=== PATIENT | female | born 1960 | race Caucasian/White ===

== ENCOUNTER 2017-01-04 12:38 | Observation (INO) ==
[2017-01-04] MEDS ORDERED: Aspirin 81 MG TAB.CHEW PO ONE (13:01)
[2017-01-04 13:15] LABS: Basophils # 0.1 K/mcL (0.0-0.2); Basophils % 1.3 %; Eosinophils # 0.2 K/mcL (0.0-0.6); Eosinophils % 3.1 %; Hematocrit 42.9 % (35.3-44.9); Hemoglobin 14.7 g/dL (11.5-15.4); Immature Granulocytes % 0.4 % (0-4); Lymphocytes # 1.7 K/mcL (0.6-4.6); Mean Corpuscular HGB Conc 34.3 g/dL (31.6-35.5); Mean Corpuscular Hemoglobin 30.6 pg (28.0-33.3); Mean Corpuscular Volume 89.2 fL (83.0-100.0); Mean Platelet Volume 9.2 fL (9.4-12.4); Monocytes # 0.4 K/mcL (0.0-1.3); Neutrophils # 3.1 K/mcL (1.6-8.9); Platelet Count 134 K/mcL (140-400); Red Blood Count 4.81 M/mcL (3.82-4.97); Red Cell Distribution Width 12.4 % (11.5-14.5); Segmented Neutrophils % 56.2 %
[2017-01-04] MEDS ORDERED: Nitroglycerin 0.4 MG TAB.SUBL SL ONE (13:16)
--- NOTE | 2017-01-04 13:16 | Emergency Department Note ---
Disposition Clinical Impression: Chest pain Qualifiers: Chest pain type: unspecified Qualified Code(s): R07.9 - Chest pain, unspecified Disposition: Admitted As Inpatient Condition: Good Time of Disposition: 15:28 Chest Pain HPI - General Chief Complaint: ED Chest Pain Stated Complaint: CP Time Seen by Provider: 01/04/17 12:47 Source: patient Mode of arrival: ambulatory Limitations: physical limitation Vital Signs Reviewed: Yes Nursing Notes Reviewed: Yes - History of Present Illness HPI Narrative: 56-year-old female presents complaining of tingling and numbness in her left upper extremity radiating into her chest history of hypertension hyperlipidemia no history of CAD previously insulin controlled diabetic, states that the pain is 6 out of 10 aching in her chest, states it is associated with some diaphoresis. Patient denies weakness in her face slurred speech or any other focal neurologic deficits besides her left upper extremity seizure. Patient denies history of DVT or PE, just some cramping in her right calf, but is not taking estrogens, no recent car plane travel. Pt complaint: chest pain Time: 14:50 Duration: intermittent Onset: during rest Pain Location: right chest Severity: moderate Severity scale (1-10): 8 Quality: aching - Related Data Home Medications Medication Instructions Recorded Confirmed Multivitamin [Multivitamins] 1 tab PO DAILY 10/17/14 01/04/17 Sennosides [Natural Vegetable 8.6 mg PO BID PRN 10/17/14 01/04/17 Laxative] Trazodone HCl [TraZODone] 100 mg PO HS 10/17/14 01/04/17 Garlic [Daily Garlic Once-A-Day] 400 mg PO DAILY 01/28/16 01/04/17 Ascorbic Acid [Vitamin C] 500 mg PO DAILY 04/14/16 01/04/17 Aspirin [Lo-Dose Aspirin EC] 81 mg PO DAILY 04/14/16 01/04/17 Lactobacillus Acidophilus 1 cap PO DAILY 04/14/16 01/04/17 [Acidophilus] Atenolol [Tenormin] 50 mg PO BID 07/27/16 01/04/17 Calcium Carbonate/Vitamin D3 1 tab PO BID 07/27/16 01/04/17 [Oyster Shell Calcium-Vit D Tab] Dextran 70/Hypromellose 1 drop OP QID 07/27/16 01/04/17 [Artificial Tears] Fenofibrate [Tricor] 54 mg PO DAILY 07/27/16 01/04/17 Ipratropium [place] 2 spray NS DAILY 07/27/16 01/04/17 Cholecalciferol (D-3) [Vitamin D] 5,000 unit PO DAILY 08/02/16 01/04/17 Lactulose [Enulose] 10 gm PO DAILY 08/02/16 01/04/17 Zinc Acetate [Galzin] 50 mg PO DAILY 08/02/16 01/04/17 cloNIDine HCl [CloNIDine HCl] 0.1 mg PO DAILY 08/02/16 01/04/17 Albuterol Sulfate [Albuterol 2 puff IH Q6HR PRN 11/02/16 01/04/17 Inhaler] Lidocaine Patch [Lidoderm 5% patch] 1 patch TP DAILY PRN 11/02/16 01/04/17 Levothyroxine Sodium [Levoxyl] 100 mcg PO DAILY 01/04/17 01/04/17 Previous Rx's Medication Instructions Recorded Zolpidem Tartrate [Ambien Cr] 12.5 mg PO DAILY PRN #30 tab.mphase 12/12/14 Diazepam [Valium] 10 mg PO BID PRN #60 tablet 01/09/15 Cetirizine HCl [Zyrtec] 10 mg PO DAILY #30 tablet 12/17/15 Esomeprazole Magnesium [Nexium] 40 mg PO DAILY #30 capsule. 09/01/16 Allergies Allergy/AdvReac Type Severity Reaction Status Date / Time niacin AdvReac UNKNOWN Verified 01/04/17 12:54 Penicillins AdvReac UNKNOWN Verified 01/04/17 12:54 Adrian AdvReac Rash Verified 01/04/17 12:54 Sulfa (Sulfonamide AdvReac UNKNOWN Verified 01/04/17 12:54 Antibiotics) All systems ED: reviewed and negative except as stated. Review of Systems: As Per HPI Constitutional: Denies: fever, chills Eyes: Denies: eye pain ENT ED: Denies: ear pain Cardiovascular: Reports: as per HPI, chest pain Respiratory: Denies: cough Gastrointestinal: Denies: abdominal pain, nausea Genitourinary: Denies: urgency Musculoskeletal: Denies: back pain Integumentary: Denies: rash Chest Pain PMH - Past Medical History Medical history: Reports: arthritis, COPD, GERD, hepatitis, hypertension Surgical history: Reports: other Psychiatric history: Reports: anxiety, bipolar SHAFTING CLEANER history: Reports: no SHAFTING CLEANER history - Social History Smoking Status: Never smoker Alcohol use: Reports: none, occasionally Drug use: Reports: none, marijuana Physical Exam Constitutional: NAD pt appears anxious and shaky somewhat diaphoretic, vital signs reviewed and wnl Eyes: PERRLA, sclera anicteric ENT & Mouth: MMM Neck: normal inspection, neck is supple Resp: CTA bilaterally, no resp distress CV: RRR, no m/g/r GI: normal inspection, soft, no guarding or rigidity Neuro: A&O3, strength intact bilateral upper and lower extremities, subjective sensation of paresthesia to left arm Skin: on limited exam, skin intact with no rashes or lesions - General Limitations: physical limitation General appearance: alert, in no apparent distress Course Course Narrative: 56-year-old female with left upper surgery sensory deficits as well as an onset chest pain, suspect likely cardiac, CBC BMP troponin nitroglycerin added patient given aspirin by for chest pain workup. HEART Score of 4 - Reevaluation(s) Reevaluation #1: Risk factors with chest pain, plan is for admission the hospitalist, who that additional CTA given the neurologic numbness although she is no other focal neurologic deficits. Unsure what is causing her symptoms she was in the high anxiety component likely to her symptoms. Admitted due to chest pain, resolved with nitroglycerin concern for angina versus unstable angina Plan is for her ED admission excepted by Dr. Spear Time: 15:29 Vital Signs Temperature 97.6 F 01/04/17 12:55 Pulse Rate 66 01/04/17 12:55 Respiratory Rate 22 01/04/17 12:55 Blood Pressure 179/99 01/04/17 12:55 O2 Sat by Pulse Oximetry 100 01/04/17 12:55 Temperature 97.6 F 01/04/17 12:55 Pulse Rate 50 01/04/17 14:08 Respiratory Rate 23 01/04/17 14:08 Blood Pressure 156/87 01/04/17 14:08 O2 Sat by Pulse Oximetry 97 01/04/17 14:08 Oxygen Delivery Oxygen Delivery Room Air Chest Pain - Differential Diagnosis Likely: unstable angina pectoris, atypical chest pain, chest pain - Medical Records Medical records reviewed: Yes I reviewed the patient's medical records. - Lab Data Lab results reviewed: Yes I reviewed the patient's lab results. Result diagrams: 01/04/17 13:06 01/04/17 13:06 Lab Results 01/04/17 01/04/17 01/04/17 Range/Units 13:06 13:06 13:06 WBC 5.4 (4.3-11.1) K/mcL RBC 4.81 (3.82-4.97) M/mcL Hgb 14.7 D (11.5-15.4) g/dL Hct 42.9 (35.3-44.9) % MCV 89.2 (83.0-100.0) fL MCH 30.6 (28.0-33.3) pg MCHC 34.3 (31.6-35.5) g/dL RDW 12.4 (11.5-14.5) % Plt Count 134 L (140-400) K/mcL MPV 9.2 L (9.4-12.4) fL Immature Gran % 0.4 (0-4) % Seg Neutrophils % 56.2 % Lymphocytes % 32.0 % Monocytes % 7.0 % Eosinophils % 3.1 % Basophils % 1.3 % Neutrophils # 3.1 (1.6-8.9) K/mcL Lymphocytes # 1.7 (0.6-4.6) K/mcL Monocytes # 0.4 (0.0-1.3) K/mcL Eosinophils # 0.2 (0.0-0.6) K/mcL Basophils # 0.1 (0.0-0.2) K/mcL Sodium 139 (136-145) mEq/L Potassium 4.4 (3.5-4.5) mEq/L Chloride 103 (98-109) mEq/L Carbon Dioxide 26 (19-29) mEq/L BUN 15 (7-20) mg/dL Creatinine 0.84 (0.57-1.11) mg/dL Est GFR ( Amer) > 60 (> 60) Est GFR (Non-Af Amer) > 60 (> 60) BUN/Creatinine Ratio 18 (6-26) Glucose 136 H (70-99) mg/dL Calculated Osmolality 291 (280-300) Calcium 9.9 (8.6-10.8) mg/dL Troponin I 0.00 (0-0.03) ng/mL - Radiology Data Radiology results reviewed: Yes I reviewed the patient's radiology results. Chest X-Ray 01/04/17 13:01 IMPRESSION: Cardiomegaly, slightly decreased since previous exam. D/ / Makenna Vasquez MD / Makenna Vasquez MD Interpreting Provider: Makenna Vasquez MD Chest CTA 01/04/17 13:54 IMPRESSION: No evidence of pulmonary embolism or acute pulmonary abnormality. D/ / Daniele Juarez MD / Daniele Juarez MD Interpreting Provider: Daniele Juarez MD - EKG Data EKG attestation: Yes I reviewed and interpreted this EKG. EKG shows normal: sinus rhythm (63 bpm AR 126 QRS 96 QTc [address] segment elevations or depressions flattened T-wave in lead 3) Rate: normal Rhythm: NSR Interpretation: no acute changes - Core Measures AMI Core Measures Followed: Yes Heart Score - Score History: Moderately Suspicious EKG: Normal Age: 45-65 Risk Factors: Equal/Greater than 3 risk factor or history of atherosclerotic disease Troponin: Less than normal limit HEART Score Total: 4 Attestation Statement - Attestation Attestation: I examined this patient and my medical decision-making was reviewed with the Resident Physician. I agree with the documented findings, disposition and treatment plan as described except to the extent set forth below. Patient to the ED complaining of left arm pain. She states that the numbness in her arm for several days. Today she got sharp stabbing pain from her wrist. States it radiated to her shoulder blade and then into her chest. Denies cough or fever. She is not short of breath. She did have an esophagectomy with thyroidectomy in 2014. On examination she has severe pain with any palpation of the arm. She has a good pulse. The hands pink and warm. Tenderness over the scapula as well. There is no rash overlying these areas. Her lungs are clear. Plan. Her cardiac workup is unremarkable. Imaging of the chest is unremarkable as well. Patient is admitted for further cardiac workup.
[2017-01-04 13:28] LABS: BUN/Creatinine Ratio 18 (6-26); Blood Urea Nitrogen 15 mg/dL (7-20); Calcium 9.9 mg/dL (8.6-10.8); Carbon Dioxide 26 mEq/L (19-29); Chloride 103 mEq/L (98-109); Glucose 136 mg/dL (70-99); Osmolality,Calculated 291 (280-300); Potassium 4.4 mEq/L (3.5-4.5); Sodium 139 mEq/L (136-145); eGFR For African Americans > 60 (> 60); eGFR For Non-African Americans > 60 (> 60)
[2017-01-04] MEDS ORDERED: *HR* HYDROcodone/Acet 5/325 mg TABLET PO PRN (15:33)
[2017-01-04] MEDS ORDERED: *HR* Morphine 2 MG/ML SYRINGE IVP PRN (15:33)
[2017-01-04] MEDS ORDERED: Ondansetron 4 MG/2 ML VIAL IVP PRN (15:33)
[2017-01-04] MEDS ORDERED: Acetaminophen 325 MG TABLET PO PRN (15:33)
[2017-01-04] MEDS ORDERED: Naloxone 0.4 MG/ML INJ IVP PRN (15:33)
[2017-01-04] MEDS ORDERED: MOM Conc 10 ML UD.LIQ PO PRN (15:33)
[2017-01-04] MEDS ORDERED: *HR* Promethazine 25 MG/ML VIAL IVP PRN (15:33)
[2017-01-04] MEDS ORDERED: diazePAM 10 MG TABLET PO ONE (15:34)
[2017-01-04] MEDS ORDERED: Sennosides 8.6 MG TABLET PO PRN (15:36)
--- NOTE | 2017-01-04 17:27 | Internal Med History&Physical ---
Date of Encounter: 01/04/17 Time of Encounter: 17:17 Assessment and Plan (1) Left-sided weakness Current visit: Yes Status: Acute Will place the pt into Tele for observation Pt is a poor hisotrian, she was not giving proper history.. however upon examination noticed Left UE / LE weakness will cont Neuro checks Q4hr Not a candidate for tPA due to prolonged duration of symptoms Will get a stat CT of Head Cont ASA Check FLP in AM Cont Tricor for now Will get brain MRI of Carotid Doppler in AM will get 2 D Echo in AM (2) Chest pain Current visit: Yes Status: Acute Will place pt on bus driver/monitor check serial troponin so far negative troponin EKG reviewed - NSR, with VR - 63, No ST, T changes Cont on ASA, Nitro PRN and Morphine IV PRN for pain Will check FLP in AM Her CP seems to be atypical no further work up needed at this point will get 2 D Echo in AM Cont BB Atenolol Qualifiers: Chest pain type: unspecified Qualified Code(s): R07.9 - Chest pain, unspecified (3) HTN (hypertension) Current visit: Yes Status: Acute Resumed home meds Qualifiers: Qualified Code(s): I10 - Essential (primary) hypertension (4) COPD (chronic obstructive pulmonary disease) Current visit: Yes Status: Chronic stable not in exacerbation resumed home regimen Qualifiers: Qualified Code(s): J44.9 - Chronic obstructive pulmonary disease, unspecified (5) Esophageal adenocarcinoma Current visit: Yes Status: Chronic f/u with Heme Onc as an out pt recent EGD biopsy results - showed no malignancy (6) Malignant neoplasm of unspecified site of right female breast Current visit: Yes Status: Chronic Qualifiers: Qualified Code(s): C50.911 - Malignant neoplasm of unspecified site of right female breast (7) Anxiety Current visit: No Status: Acute resumed home meds Valium Internal Medicine - H&P: HPI Chief complaint: Left arm/ leg weakness.. Left arm pain Admitted From: Emergency Dept Plans for Post Hospital Care: Home History of present illness: Ms. Gonzalez is a 56 year old female esophageal adenocarcinoma status post neoadjuvant chemoradiation and esophagectomy with radiotherapy completed 2013, Rt breast cancer s/p mastectomy chemotherapy / radiation therapy 20 yrs ago, Cervical cancer, COPD not on home O2 dependent, former smoker, quit in 2014 and anxiety pt presented to ER today c/o pain and weakness in Left arm started a week ago, the pain is radiating to her shoulder and left chest wall region from last 2 days. She also had weakness in left arm, unable to hold anything with that hand. She denied any weakness anywhere else, however when I started examining her, noticed weakness in left leg. Then pt stated m " Oh, I have weakness in left leg too since this morning ". She also c/o headache, no visual changes. She denied any previous h/o [place]/ CAD, cardiac work up. She denied any current GI / symptoms. She does look slightly anxious. 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 She also had EGD done on 12/16/16 biopsy did not show any malignancy. Past Med Surg Social Fam HX - Past Medical History Medical history: arthritis, cancer, COPD, GERD, hepatitis, hypertension Psychiatric history: anxiety, bipolar, PTSD - Past Surgical History Surgical History: breast surgery, KOKO/BSO, thyroidectomy - Social History Smoking Status: Former smoker Smokeless Tobacco Status: No Alcohol use: occasionally Drug use: marijuana - Family History Father Hx Family Cardiac Disorders: Yes Hx Family Cancer: Yes (non hodgkins) Internal Medicine - H&P: Meds Multivitamin [Multivitamins] 1 tab PO DAILY 10/17/14 [History] Sennosides [Natural Vegetable Laxative] 8.6 mg PO BID PRN 10/17/14 [History] Trazodone HCl [TraZODone] 100 mg PO HS 10/17/14 [History] Zolpidem Tartrate [Ambien Cr] 12.5 mg PO DAILY PRN #30 tab.mphase 12/12/14 [Rx] Diazepam [Valium] 10 mg PO BID PRN #60 tablet 01/09/15 [Rx] Cetirizine HCl [Zyrtec] 10 mg PO DAILY #30 tablet 12/17/15 [Rx] Garlic [Daily Garlic Once-A-Day] 400 mg PO DAILY 01/28/16 [History] Ascorbic Acid [Vitamin C] 500 mg PO DAILY 04/14/16 [History] Aspirin [Lo-Dose Aspirin EC] 81 mg PO DAILY 04/14/16 [History] Lactobacillus Acidophilus [Acidophilus] 1 cap PO DAILY 04/14/16 [History] Atenolol [Tenormin] 50 mg PO BID 07/27/16 [History] Calcium Carbonate/Vitamin D3 [Oyster Shell Calcium-Vit D Tab] 1 tab PO BID 07/27 [History] Dextran 70/Hypromellose [Artificial Tears] 1 drop OP QID 07/27/16 [History] Fenofibrate [Tricor] 54 mg PO DAILY 07/27/16 [History] Ipratropium [place] 2 spray NS DAILY 07/27/16 [History] Cholecalciferol (D-3) [Vitamin D] 5,000 unit PO DAILY 08/02/16 [History] Lactulose [Enulose] 10 gm PO DAILY 08/02/16 [History] Zinc Acetate [Galzin] 50 mg PO DAILY 08/02/16 [History] cloNIDine HCl [CloNIDine HCl] 0.1 mg PO DAILY 08/02/16 [History] Esomeprazole Magnesium [Nexium] 40 mg PO DAILY #30 capsule. 09/01/16 [Rx] Albuterol Sulfate [Albuterol Inhaler] 2 puff IH Q6HR PRN 11/02/16 [History] Lidocaine Patch [Lidoderm 5% patch] 1 patch TP DAILY PRN 11/02/16 [History] Levothyroxine Sodium [Levoxyl] 100 mcg PO DAILY 01/04/17 [History] 3 Allergy/AdvReac Type Severity Reaction Status Date / Time niacin AdvReac UNKNOWN Verified 01/04/17 12:54 Penicillins AdvReac UNKNOWN Verified 01/04/17 12:54 Murphy AdvReac Rash Verified 01/04/17 12:54 Sulfa (Sulfonamide AdvReac UNKNOWN Verified 01/04/17 12:54 Antibiotics) All Systems PM: A 10-system review of systems was performed and is negative for pertinent findings except as documented above in the HPI. Review of systems: All the systems are reviewed everything is benign except the systems and symptoms I mentioned in the history of present illness - Constitutional Vitals: Temp Pulse Resp BP Pulse Ox 98.1 F 58 16 147/79 97 01/04/17 16:18 01/04/17 16:18 01/04/17 16:18 01/04/17 16:18 01/04/17 16:18 General appearance: Present: A&O X 3, no acute distress (little anxious), answers questions appropriately - Head Head exam: Present: atraumatic, normal inspection - Neck Neck exam general surgery: Present: supple - Respiratory Respiratory exam: Present: decreased breath sounds, wheezes (mild). Absent: rales, respiratory distress, rhonchi - Cardiovascular Cardiovascular exam: Present: RRR, +S1, +S2. Absent: diastolic murmur, gallop, rubs, systolic murmur - GI/Abdominal GI/Abdominal exam: Present: normal bowel sounds, soft, no peritoneal signs. Absent: distended, tenderness - Extremities Exam Extremities exam: Absent: calf tenderness, pedal edema, tenderness - Neurological Exam Neurological exam: Present: alert, motor sensory deficit (Left Upper and lower extremeity weakness, more significant on LUE), oriented X3. Absent: strengths equal and symetr throughout, pronater drift, facial droop, speech deficit - Psychiatric Psychiatric exam: Present: anxious - Skin Skin exam: Present: dry Internal Med - H&P Results - Labs CBC & Chem 7: 01/04/17 13:06 01/04/17 13:06
--- NOTE | 2017-01-04 17:27 | Electrocardiograph Report ---
[facility] Test Date: 2017-01-04 Pat Name: Valentine Gonzalez Department: [id number] Room: 3B37 Gender: F [employer]: : 1960 Requested By: Haseeb Lou Order Number: [id number] Reading MD: Trell Novak DO Measurements Intervals [place] Rate: 63 P: 17 SC: 126 QRS: 74 QRSD: 96 T: 21 QT: 429 QTc: 436 Interpretive Statements SINUS RHYTHM POSSIBLE LEFT ATRIAL ENLARGEMENT [-0.1mV P WAVE IN V1/V2] INTERPRETATION BASED ON A DEFAULT AGE OF 40 YEARS Electronically Signed On 01-04-2017 17:25:58 EDT by Trell Novak DO
[2017-01-04] MEDS: Artificial Tears SOLN 15 ML BOTTLE OP SCH ×2 (19:43→21:40)
[2017-01-04] MEDS: traZODone 50 MG TABLET PO SCH (21:39)
[2017-01-04] MEDS: diazePAM 10 MG TABLET PO PRN (21:39)
[2017-01-04] MEDS: Famotidine 20 MG TABLET PO SCH (21:40)
[2017-01-04] MEDS: Fenofibrate 54 MG TABLET PO SCH (21:40)
[2017-01-05 04:17] LABS: Chol/HDL Ratio 3.9 (0-4.9)
[2017-01-05] MEDS ORDERED: Regadenoson 0.4 MG/5 ML SYRINGE IVP ONE (08:29)
[2017-01-05] MEDS: diazePAM 10 MG TABLET PO PRN ×2 (08:41→21:28)
[2017-01-05] MEDS: Cholecalciferol (D-3) 1,000 UNIT TABLET PO SCH (08:41)
[2017-01-05] MEDS: Aspirin Enteric Coated 81 MG Tablet PO SCH (08:41)
[2017-01-05] MEDS: Multivit/Ca/Min/Fe/FA 1 TAB TABLET PO SCH (08:41)
[2017-01-05] MEDS: Famotidine 20 MG TABLET PO SCH ×3 (08:42→21:29)
[2017-01-05] MEDS: Loratadine 10 MG TABLET PO SCH (08:42)
[2017-01-05] MEDS: Ascorbic Acid 500 MG TABLET PO SCH (08:42)
[2017-01-05] MEDS: Fenofibrate 54 MG TABLET PO SCH (08:42)
[2017-01-05] MEDS: cloNIDine HCl 0.1 MG TABLET PO SCH (08:42)
[2017-01-05] MEDS: Artificial Tears SOLN 15 ML BOTTLE OP SCH ×4 (08:46→21:23)
[2017-01-05] MEDS ORDERED: Fenofibrate 54 MG TABLET PO SCH (09:00)
[2017-01-05] MEDS: Zinc Acetate [Galzin] 50 MG PO SCH (12:19)
[2017-01-05] MEDS ORDERED: *HR* LORazepam 1 MG TABLET PO ONE (13:21)
--- NOTE | 2017-01-05 13:55 | Neurology - Consult Note ---
<Torito Dunham - Last Filed: 01/05/17 15:19> Date of Encounter: 01/05/17 Time of Encounter: 13:15 Assessment and Plan (1) Left-sided weakness Current Visit: Yes Status: Acute Patient presented to [facility] with concern of left-sided weakness. She also describes having some numbness in her left upper extremity No reports of facial symmetry or dysarthria. Physical exam showed weakness on left side of her body without facial droop, unable/unwilling to perform rapid also a movements are finger-nose left upper extremity, possibly positive Garcia sign when asked left left leg. CT of patient head showed no abnormalities. Preliminary report of carotid Dopplers show nonstenotic plaque bilaterally. Given the patient's history of cancer with radiation, there is some concern for a brachial plexopathy or cervical spinal lesion causing her symptoms Waiting for results of MRI of head and echocardiogram Will obtain MR of cervical spine Consider addition of statin or changing fenofibrate Continue daily aspirin Allow permissive hypertension until results of MRI are seen Recommend PT/OT History of Present Illness Chief complaint: Left arm weakness HPI: Ms. Gonzalez is a 56 year old female with prior medical history of esophageal, breasts, and cervical cancer, COPD, hypertension, fibromyalgia, thyroidectomy for atypical cells who presented to [facility] because of weakness in her left arm. She states she woke with weakness in her left arm yesterday morning. She states that she noticed it when drinking coffee in the morning. She reports having some difficulty holding objects at that time. She states that her left eye has been feeling cold but is not moving leg is supposed, she has to concentrate to make it move as she wants to. During the same time she reports some mild weakness in her left leg. She has not noticed any particular numbness other than her left hand she states is been numb for about a month. She states that following her esophagectomy for esophageal cancer in 2013 she has had off and on numbness of her left hand. She reports that for the last 2 weeks she has had headaches medicine overhead with some associated blurry vision. She denies having been sick recently, denies fever/chills, denies chest pain/shortness of breath, denies nausea/constipation. Past Med Surg Social Fam HX - Past Medical History Medical history: arthritis, cancer, COPD, GERD, hepatitis, hypertension Psychiatric history: anxiety, bipolar, PTSD - Past Surgical History Surgical History: breast surgery, KOKO/BSO, thyroidectomy - Social History Smoking Status: Former smoker Smokeless Tobacco Status: No Alcohol use: occasionally Drug use: marijuana - Family History Father Hx Family Cardiac Disorders: Yes Hx Family Cancer: Yes (non hodgkins) Medications and Allergies Multivitamin [Multivitamins] 1 tab PO DAILY 10/17/14 [History] Sennosides [Natural Vegetable Laxative] 8.6 mg PO BID PRN 10/17/14 [History] Trazodone HCl [TraZODone] 100 mg PO HS 10/17/14 [History] Zolpidem Tartrate [Ambien Cr] 12.5 mg PO DAILY PRN #30 tab.mphase 12/12/14 [Rx] Diazepam [Valium] 10 mg PO BID PRN #60 tablet 01/09/15 [Rx] Cetirizine HCl [Zyrtec] 10 mg PO DAILY #30 tablet 12/17/15 [Rx] Garlic [Daily Garlic Once-A-Day] 400 mg PO DAILY 01/28/16 [History] Ascorbic Acid [Vitamin C] 500 mg PO DAILY 04/14/16 [History] Aspirin [Lo-Dose Aspirin EC] 81 mg PO DAILY 04/14/16 [History] Lactobacillus Acidophilus [Acidophilus] 1 cap PO DAILY 04/14/16 [History] Atenolol [Tenormin] 50 mg PO BID 07/27/16 [History] Calcium Carbonate/Vitamin D3 [Oyster Shell Calcium-Vit D Tab] 1 tab PO BID 07/27 [History] Dextran 70/Hypromellose [Artificial Tears] 1 drop OP QID 07/27/16 [History] Fenofibrate [Tricor] 54 mg PO DAILY 07/27/16 [History] Ipratropium [place] 2 spray NS DAILY 07/27/16 [History] Cholecalciferol (D-3) [Vitamin D] 5,000 unit PO DAILY 08/02/16 [History] Lactulose [Enulose] 10 gm PO DAILY 08/02/16 [History] Zinc Acetate [Galzin] 50 mg PO DAILY 08/02/16 [History] cloNIDine HCl [CloNIDine HCl] 0.1 mg PO DAILY 08/02/16 [History] Esomeprazole Magnesium [Nexium] 40 mg PO DAILY #30 capsule. 09/01/16 [Rx] Albuterol Sulfate [Albuterol Inhaler] 2 puff IH Q6HR PRN 11/02/16 [History] Lidocaine Patch [Lidoderm 5% patch] 1 patch TP DAILY PRN 11/02/16 [History] Levothyroxine Sodium [Levoxyl] 100 mcg PO DAILY 01/04/17 [History] 3 Allergy/AdvReac Type Severity Reaction Status Date / Time niacin AdvReac UNKNOWN Verified 01/04/17 12:54 Penicillins AdvReac UNKNOWN Verified 01/04/17 12:54 [place] AdvReac Rash Verified 01/04/17 12:54 Sulfa (Sulfonamide AdvReac UNKNOWN Verified 01/04/17 12:54 Antibiotics) Review of Systems: Gen: Denies fever, denies chills CV: Denies chest pain, denies palpitations Resp: Denies shortness of breath GI: Denies nausea, denies vomiting, denies abdominal pain Neuro: Reports headache, denies confusion, reports left-sided focal weakness as per history of present illness, reports numbness in left hand, reports tingling in left arm, reports vision changes with headache, denies dysarthria, reports speaking backwards, denies facial asymmetry Physical Examination - Vital Signs Vital Signs: Initial Vital Signs Temp Pulse Resp BP Pulse Ox 97.6 F 66 22 179/99 100 01/04/17 12:55 01/04/17 12:55 01/04/17 12:55 01/04/17 12:55 01/04/17 12:55 - Exam Exam: General: Cooperative, pleasant, no acute distress, alert and oriented 3, answers questions appropriately HEENT: Normocephalic, atraumatic, neck supple, trachea midline, Conjunctiva pink , sclera anicteric, EOMI, PERRL, oral mucosa moist, no orophargeal erythema or exudates Respiratory: No accessory muscle usage, clear to auscultation bilaterally, no wheezes/rhonchi/rales appreciated Cardiovascular: Regular rate and rhythm, S1 and S2 present, no murmurs/rubs/ gallops/clicks appreciated GI/abdominal: Nondistended, nontender, soft, normal bowel sounds, no peritoneal signs Extremities: No calf tenderness, noncyanotic, no pedal edema appreciated, warm, lower extremity pulses palpable and symmetrical Neurological: Alert and oriented 3, no facial droop, cranial nerves II through XII grossly intact bilaterally, rapid alternating movements smooth with good laura and right hand, patient has difficulty with left hand, finger to nose smooth and accurate with right, unable to perform on left, sensation to gross touch intact produced in left upper extremity and lateral aspect of patient calf , complete numbness in left hand, strength 3/5 in left upper and lower extremity , Garcia sign positive, DTRs 2/4 in Achilles, patellar, and biceps, Results - Laboratory Findings CBC and BMP: 01/04/17 13:06 01/04/17 13:06 Abnormal lab findings: Abnormal lab results Plt Count 134 K/mcL (140-400) L 01/04/17 13:06 MPV 9.2 fL (9.4-12.4) L 01/04/17 13:06 Glucose 136 mg/dL (70-99) H 01/04/17 13:06 Triglycerides 158 mg/dL (< 150) H 01/05/17 02:25 VLDL Cholesterol, Calc 32 mg/dL (< 31) H 01/05/17 02:25 HDL Cholesterol 36 mg/dL (40-59) L 01/05/17 02:25 Consult Discharge Plan - Plan Referrals: Mara Lozada, [employer] [Primary Care Provider] - <Anup Max - Last Filed: 01/05/17 16:37> Date of Encounter: 01/05/17 Time of Encounter: 16:33 Assessment and Plan (1) Left-sided weakness Current Visit: Yes Status: Acute Chart was reviewed, case discussed with Dr. Dunham. Pt. still off [facility] for testing. I will examine her tomorrow. History of Present Illness HPI: Chart was reviewed, case was discussed with , however pt. is still off of the floor after 2 attempts to see her. I anticipate seeing her in the am. All Systems: A 10-system review of systems was performed and is negative for pertinent findings except as documented above in the HPI. Physical Examination - Vital Signs Vital Signs: Initial Vital Signs Temp Pulse Resp BP Pulse Ox 97.6 F 66 22 179/99 100 01/04/17 12:55 01/04/17 12:55 01/04/17 12:55 01/04/17 12:55 01/04/17 12:55 Results - Laboratory Findings CBC and BMP: 01/04/17 13:06 01/04/17 13:06 Abnormal lab findings: Abnormal lab results Plt Count 134 K/mcL (140-400) L 01/04/17 13:06 MPV 9.2 fL (9.4-12.4) L 01/04/17 13:06 Glucose 136 mg/dL (70-99) H 01/04/17 13:06 Triglycerides 158 mg/dL (< 150) H 01/05/17 02:25 VLDL Cholesterol, Calc 32 mg/dL (< 31) H 01/05/17 02:25 HDL Cholesterol 36 mg/dL (40-59) L 01/05/17 02:25
--- NOTE | 2017-01-05 18:05 | Internal Med Progress Note ---
Date of Encounter: 01/05/17 Time of Encounter: 18:04 - Assessment and plan (1) Left-sided weakness Current Visit: Yes Status: Acute Assessment and plan: Reviewed her Brain MRI - No acute infractions Her Cervical spine MRI showed severe stenosis at C5-6 which might contributing to her current symptoms Left arm weakness Will consult Spine surgery in AM Cont supportive care for now IV and PO analgesics ASA (2) Chest pain Current Visit: Yes Status: Acute Assessment and plan: Negative troponin so far No acute EKG changes Stress test also came back as negative cont ASA and BB Qualifiers: Chest pain type: unspecified Qualified Code(s): R07.9 - Chest pain, unspecified (3) HTN (hypertension) Current Visit: Yes Status: Acute Assessment and plan: stable with current meds Qualifiers: Hypertension type: essential hypertension Qualified Code(s): I10 - Essential (primary) hypertension (4) COPD (chronic obstructive pulmonary disease) Current Visit: Yes Status: Chronic Assessment and plan: resumed home regimen Qualifiers: Qualified Code(s): J44.9 - Chronic obstructive pulmonary disease, unspecified (5) Esophageal adenocarcinoma Current Visit: Yes Status: Chronic (6) Malignant neoplasm of unspecified site of right female breast Current Visit: Yes Status: Chronic Qualifiers: Qualified Code(s): C50.911 - Malignant neoplasm of unspecified site of right female breast (7) Anxiety Current Visit: No Status: Acute Assessment and plan: on Valium TID PRN - Subjective Interval history: Ms. Tams is a 56 year old female esophageal adenocarcinoma status post neoadjuvant chemoradiation and esophagectomy with radiotherapy completed 2013, Rt breast cancer s/p mastectomy chemotherapy / radiation therapy 20 yrs ago, Cervical cancer, COPD not on home O2 dependent, former smoker, quit in 2014 and anxiety pt presented to ER today c/o pain and weakness in Left arm started a week ago, the pain is radiating to her shoulder and left chest wall region from last 2 days. She also had weakness in left arm, unable to hold anything with that hand. She denied any weakness anywhere else, however when I started examining her, noticed weakness in left leg. Then pt stated m " Oh, I have weakness in left leg too since this morning ". She also c/o headache, no visual changes. Pt stated she is feeling little better today..Denied any more CP. However still c/o pricking sensation / tingling/ numbness in Left arm and Left leg. - Constitutional Vitals: Temp Pulse Resp BP Pulse Ox 97.5 F L 75 16 134/87 99 01/05/17 14:23 01/05/17 14:23 01/05/17 14:23 01/05/17 14:23 01/05/17 14:23 General appearance: Present: A&O X 3, no acute distress (little anxious), answers questions appropriately - Head Head exam: Present: atraumatic, normal inspection - Neck Neck exam general surgery: Present: supple - Respiratory Respiratory exam: Present: decreased breath sounds. Absent: rales, respiratory distress, rhonchi, wheezes - Cardiovascular Cardiovascular exam: Present: RRR, +S1, +S2. Absent: systolic murmur - GI/Abdominal GI/Abdominal exam: Present: normal bowel sounds, soft. Absent: rebound, rigid, tenderness - Extremities Exam Additional comments: mild weakness in left arm and Left leg.. - Neurological Exam Neurological exam: Present: alert, CN II-XII intact, motor sensory deficit, oriented X3. Absent: facial droop, speech deficit - Psychiatric Psychiatric exam: Present: anxious Internal Medicine: Result - Labs CBC & Chem 7: 01/04/17 13:06 01/04/17 13:06 Labs: Cardiac Enzymes 01/04/17 01/05/17 Range/Units 19:48 02:25 Troponin I 0.00 0.00 (0-0.03) ng/mL - Impressions Impressions Head CT 01/04/17 17:09 IMPRESSION: No acute intracranial abnormality. D/ / Navjot Benitez MD / Navjot Benitez MD Interpreting Provider: Navjot Benitez MD Brain MRI 01/05/17 07:41 IMPRESSION: There are several areas of high signal in the periventricular white matter that are likely related to chronic small vessel ischemic disease. Demyelination cannot be excluded in the proper clinical setting. There are no areas of restricted diffusion to suggest an acute ischemic event. Mild mucoperiosteal thickening of the maxillary sinuses and ethmoid air cells. Mucous retention cyst or polyp in the left maxillary sinus. D/ / Kaylynn Macedo MD / Kaylynn Macedo MD Interpreting Provider: Kaylynn Macedo MD Foreign Body Localization X-Ray 01/05/17 13:27 IMPRESSION: No evidence of metallic foreign body within the orbits. D/ / Rafael Jacinto MD / Rafael Jacinto MD Interpreting Provider: Rafael Jacitno MD Cervical Spine MRI 01/05/17 15:17 IMPRESSION: 1. Multilevel degenerative changes of the cervical spine, most severe at C5-C6. 2. No evidence of spinal cord compression. No abnormal spinal cord enhancement. D/ / Rafael Jacinto MD / Rafael Jacinto MD Interpreting Provider: Rafael Jacinto MD Consult Discharge Plan - Plan Referrals: Mara Lozada, [employer] [Primary Care Provider] -
[2017-01-05] MEDS: traZODone 50 MG TABLET PO SCH (21:19)
--- NOTE | 2017-01-06 07:43 | Neurology - Consult Note ---
Date of Encounter: 01/06/17 Time of Encounter: 07:41 Assessment and Plan (1) Left-sided weakness Current Visit: Yes Status: Acute It seems to me that we are dealing with a conversion reaction. Her neurologic deficits are nonphysiologic, MRI scan of the brain reveals no evidence of an acute diffusion deficit or acute ischemic lesion. She does have scattered deep white matter hyperintensities. MRI of the cervical spine was negative for evidence of radiation myelopathy. It is possible that we may be dealing with a peripheral nerve lesion such as carpal tunnel, however this would certainly not cause paresthesias and weakness of the left upper as well as left lower extremity. I would like to follow up with her my office as an outpatient to perform an EMG study of the left upper extremity. May discharge her your discretion. Certainly she does have stroke risk factors. As she was extremely hypertensive upon admission. Even if this were infective mild TIA, her deficits are still not matching with a normal MRI scan of the brain, and normal cervical imaging. Stroke risk factor management is paramount. I will reevaluate her at your request. History of Present Illness HPI: Ms. Gonzalez is a 56 year old female seen for neurologic consultation due to complaints of left upper and left lower extremity paresthesias and weakness. The specifics of the history of present illness please see Dr. Tyler Dunham's history of present illness dated 01/05/2017. The patient was seen and examined independently this morning. Patient has a history of breast cancer, as well as esophageal cancer. She admits that she is under tremendous amount of stress. The case was discussed with Dr. Dunham on 01/05/2017. I agree with his account as dictated in his report. Past Med Surg Social Fam HX - Past Medical History Medical history: arthritis, cancer, COPD, GERD, hepatitis, hypertension Psychiatric history: anxiety, bipolar, PTSD - Past Surgical History Surgical History: breast surgery, KOKO/BSO, thyroidectomy - Social History Smoking Status: Former smoker Smokeless Tobacco Status: No Alcohol use: occasionally Drug use: marijuana - Family History Father Hx Family Cardiac Disorders: Yes Hx Family Cancer: Yes (non hodgkins) Medications and Allergies Multivitamin [Multivitamins] 1 tab PO DAILY 10/17/14 [History] Sennosides [Natural Vegetable Laxative] 8.6 mg PO BID PRN 10/17/14 [History] Trazodone HCl [TraZODone] 100 mg PO HS 10/17/14 [History] Zolpidem Tartrate [Ambien Cr] 12.5 mg PO DAILY PRN #30 tab.mphase 12/12/14 [Rx] Diazepam [Valium] 10 mg PO BID PRN #60 tablet 01/09/15 [Rx] Cetirizine HCl [Zyrtec] 10 mg PO DAILY #30 tablet 12/17/15 [Rx] Garlic [Daily Garlic Once-A-Day] 400 mg PO DAILY 01/28/16 [History] Ascorbic Acid [Vitamin C] 500 mg PO DAILY 04/14/16 [History] Aspirin [Lo-Dose Aspirin EC] 81 mg PO DAILY 04/14/16 [History] Lactobacillus Acidophilus [Acidophilus] 1 cap PO DAILY 04/14/16 [History] Atenolol [Tenormin] 50 mg PO BID 07/27/16 [History] Calcium Carbonate/Vitamin D3 [Oyster Shell Calcium-Vit D Tab] 1 tab PO BID 07/27 [History] Dextran 70/Hypromellose [Artificial Tears] 1 drop OP QID 07/27/16 [History] Fenofibrate [Tricor] 54 mg PO DAILY 07/27/16 [History] Ipratropium [place] 2 spray NS DAILY 07/27/16 [History] Cholecalciferol (D-3) [Vitamin D] 5,000 unit PO DAILY 08/02/16 [History] Lactulose [Enulose] 10 gm PO DAILY 08/02/16 [History] Zinc Acetate [Galzin] 50 mg PO DAILY 08/02/16 [History] cloNIDine HCl [CloNIDine HCl] 0.1 mg PO DAILY 08/02/16 [History] Esomeprazole Magnesium [Nexium] 40 mg PO DAILY #30 capsule. 09/01/16 [Rx] Albuterol Sulfate [Albuterol Inhaler] 2 puff IH Q6HR PRN 11/02/16 [History] Lidocaine Patch [Lidoderm 5% patch] 1 patch TP DAILY PRN 11/02/16 [History] Levothyroxine Sodium [Levoxyl] 100 mcg PO DAILY 01/04/17 [History] 3 Allergy/AdvReac Type Severity Reaction Status Date / Time niacin AdvReac UNKNOWN Verified 01/04/17 12:54 Penicillins AdvReac UNKNOWN Verified 01/04/17 12:54 [place] AdvReac Rash Verified 01/04/17 12:54 Sulfa (Sulfonamide AdvReac UNKNOWN Verified 01/04/17 12:54 Antibiotics) All Systems: A 10-system review of systems was performed and is negative for pertinent findings except as documented above in the HPI. Review of Systems: 10 point review of systems is consistent with a history of present illness and is otherwise negative. Physical Examination - Vital Signs Vital Signs: Initial Vital Signs Temp Pulse Resp BP Pulse Ox 97.6 F 66 22 179/99 100 01/04/17 12:55 01/04/17 12:55 01/04/17 12:55 01/04/17 12:55 01/04/17 12:55 - Exam Exam: Mental status-patient is awake alert and oriented to person place and time. She follows commands and answers questions appropriately. There is no agnosia, aphasia, or apraxia identified. Judgment and abstract thinking appear to be intact. Cranial nerves-pupils are equal and reactive to light and accommodation, extraocular motility is intact, she does have left facial hemihypesthesia. With a midline deficit which is nonphysiologic. Mastication is intact. There is no facial asymmetry. Speech is not dysarthric. Hearing is intact symmetrically. Soft palate elevates bilaterally upon phonation. Tongue protrusion is midline. Cerebellar exam finds pseudo-ataxia of the left upper extremity. There is no nystagmus identified. I did not ambulate her. Motor exam-there is obvious giveaway weakness of the left upper and left lower extremity. She has normal strength bulk and tone of the right upper and right lower extremities. She has normal tone of the left upper and left lower extremity. No involuntary movements or atrophy are present. Sensory exam-midline deficit finding hypoesthesia of the left vishal-soma. Deep tendon reflexes are 1 symmetrically the biceps triceps brachial radialis patellar. The right Achilles reflexes 2, the left Achilles reflexes 1. No clonus or Babinski are present. Results - Laboratory Findings CBC and BMP: 01/04/17 13:06 01/04/17 13:06 Abnormal lab findings: Abnormal lab results Plt Count 134 K/mcL (140-400) L 01/04/17 13:06 MPV 9.2 fL (9.4-12.4) L 01/04/17 13:06 Glucose 136 mg/dL (70-99) H 01/04/17 13:06 Triglycerides 158 mg/dL (< 150) H 01/05/17 02:25 VLDL Cholesterol, Calc 32 mg/dL (< 31) H 01/05/17 02:25 HDL Cholesterol 36 mg/dL (40-59) L 01/05/17 02:25 Consult Discharge Plan - Plan Referrals: Mara Lozada, [employer] [Primary Care Provider] -
[2017-01-06] MEDS: Multivit/Ca/Min/Fe/FA 1 TAB TABLET PO SCH (08:58)
[2017-01-06] MEDS: Aspirin Enteric Coated 81 MG Tablet PO SCH (08:58)
[2017-01-06] MEDS: cloNIDine HCl 0.1 MG TABLET PO SCH (08:58)
[2017-01-06] MEDS: Famotidine 20 MG TABLET PO SCH (08:58)
[2017-01-06] MEDS: Cholecalciferol (D-3) 1,000 UNIT TABLET PO SCH (08:58)
[2017-01-06] MEDS: Ascorbic Acid 500 MG TABLET PO SCH (08:58)
[2017-01-06] MEDS: Fenofibrate 54 MG TABLET PO SCH (08:58)
[2017-01-06] MEDS: Loratadine 10 MG TABLET PO SCH (08:58)
[2017-01-06] MEDS: Zinc Acetate [Galzin] 50 MG PO SCH (08:59)
[2017-01-06] MEDS: Artificial Tears SOLN 15 ML BOTTLE OP SCH (08:59)
[2017-01-06] MEDS: diazePAM 10 MG TABLET PO PRN (09:06)
--- NOTE | 2017-01-06 10:03 | Discharge Summary ---
Date of Encounter: 01/06/17 Time of Encounter: 09:58 - Discharge Diagnosis (1) Left-sided weakness Priority: Primary Status: Acute (2) Chest pain Priority: Primary Status: Acute Qualifiers: Chest pain type: unspecified Qualified Code(s): R07.9 - Chest pain, unspecified (3) HTN (hypertension) Priority: Secondary Status: Acute Qualifiers: Hypertension type: essential hypertension Qualified Code(s): I10 - Essential (primary) hypertension (4) COPD (chronic obstructive pulmonary disease) Priority: Secondary Status: Chronic Qualifiers: Qualified Code(s): J44.9 - Chronic obstructive pulmonary disease, unspecified (5) Esophageal adenocarcinoma Priority: Secondary Status: Chronic (6) Malignant neoplasm of unspecified site of right female breast Priority: Secondary Status: Chronic Qualifiers: Qualified Code(s): C50.911 - Malignant neoplasm of unspecified site of right female breast (7) Anxiety Priority: Secondary Status: Acute - Discharge Medications Home Medications: Multivitamin [Multivitamins] 1 tab PO DAILY 10/17/14 [History] Sennosides [Natural Vegetable Laxative] 8.6 mg PO BID PRN 10/17/14 [History] Trazodone HCl [TraZODone] 100 mg PO HS 10/17/14 [History] Zolpidem Tartrate [Ambien Cr] 12.5 mg PO DAILY PRN #30 tab.mphase 12/12/14 [Rx] Diazepam [Valium] 10 mg PO BID PRN #60 tablet 01/09/15 [Rx] Cetirizine HCl [Zyrtec] 10 mg PO DAILY #30 tablet 12/17/15 [Rx] Garlic [Daily Garlic Once-A-Day] 400 mg PO DAILY 01/28/16 [History] Ascorbic Acid [Vitamin C] 500 mg PO DAILY 04/14/16 [History] Aspirin [Lo-Dose Aspirin EC] 81 mg PO DAILY 04/14/16 [History] Lactobacillus Acidophilus [Acidophilus] 1 cap PO DAILY 04/14/16 [History] Atenolol [Tenormin] 50 mg PO BID 07/27/16 [History] Calcium Carbonate/Vitamin D3 [Oyster Shell Calcium-Vit D Tab] 1 tab PO BID 07/27 [History] Dextran 70/Hypromellose [Artificial Tears] 1 drop OP QID 07/27/16 [History] Fenofibrate [Tricor] 54 mg PO DAILY 07/27/16 [History] Ipratropium [place] 2 spray NS DAILY 07/27/16 [History] Cholecalciferol (D-3) [Vitamin D] 5,000 unit PO DAILY 08/02/16 [History] Lactulose [Enulose] 10 gm PO DAILY 08/02/16 [History] Zinc Acetate [Galzin] 50 mg PO DAILY 08/02/16 [History] cloNIDine HCl [CloNIDine HCl] 0.1 mg PO DAILY 08/02/16 [History] Esomeprazole Magnesium [Nexium] 40 mg PO DAILY #30 capsule. 09/01/16 [Rx] Albuterol Sulfate [Albuterol Inhaler] 2 puff IH Q6HR PRN 11/02/16 [History] Lidocaine Patch [Lidoderm 5% patch] 1 patch TP DAILY PRN 11/02/16 [History] Levothyroxine Sodium [Levoxyl] 100 mcg PO DAILY 01/04/17 [History] Allergies/Adverse Reactions: 3 Allergy/AdvReac Type Severity Reaction Status Date / Time niacin AdvReac UNKNOWN Verified 01/04/17 12:54 Penicillins AdvReac UNKNOWN Verified 01/04/17 12:54 [place] AdvReac Rash Verified 01/04/17 12:54 Sulfa (Sulfonamide AdvReac UNKNOWN Verified 01/04/17 12:54 Antibiotics) Procedures/tests Complete & Pending: Procedures Performed prior 72 hours Category Date Time Status CT head/brain wo con [CT] Stat Cat Scan 01/04/17 17:09 Completed NM janay perf SPECT multi [NM] Routine Exams 01/05/17 07:41 Taken MR cervical spine wo/w con [MR] Routine MRI 01/05/17 15:17 Completed MR head/brain wo con [MR] Routine MRI 01/05/17 07:41 Completed ECG 12 lead ECG [ECG] Routine Y 01/04/17 13:10 Completed EV carotid duplex imaging BI Routine Y 01/05/17 07:41 Completed SP pharm nuclear stress Routine Y 01/05/17 08:27 Completed Date of admission: 01/04/17 14:37 Primary care physician: Mara Lozada CNP Consults: 01/05/17 07:42 Consult to Neurology [CONS] Routine Consulting Provider: Neurology [facility] Reason for Consult: Left side weakness Call Completed: Yes 01/05/17 11:09 Consult to Physical Therapy [CONS] Routine Comment: Evaluate, develop and implement POC Reason for Consult: Left side weakness OT [Consult to Occupational Therapy] [CONS] Routine Comment: Evaluate, develop and implement POC Reason for Consult: left side weakness 01/05/17 16:54 Consult to [employer] [CONS] Routine Reason for SW Consult: Pt needed transport set up. 01/06/17 09:10 Consult to Orthopedic Surgery [CONS] Routine Consulting Provider: Jaspal Mcdermott Jr Reason for Consult: Cervical spinal stenosis Call Completed: Yes - Patient Status Disposition: Home, Self-Care Condition: Good Overall status at discharge: patient is back to baseline - Discharge Instructions Follow Up With: Jourdan Richard DO [Partnered Physician] - 02/09/17 11:25 am Mara Lozada, LENS CLEANER [Primary Care Provider] - - Diet and Activity Activity: increase activity as tolerated Diet: low salt diet Hospital course: Ms. Gonzalez is a 56 year old female esophageal adenocarcinoma status post neoadjuvant chemoradiation and esophagectomy with radiotherapy completed 2013, Rt breast cancer s/p mastectomy chemotherapy / radiation therapy 20 yrs ago, Cervical cancer, COPD not on home O2 dependent, former smoker, quit in 2014 and anxiety pt presented to ER today c/o pain and weakness in Left arm started a week ago, the pain is radiating to her shoulder and left chest wall region from last 2 days. She also had weakness in left arm, unable to hold anything with that hand. She denied any weakness anywhere else, however when I started examining her, noticed weakness in left leg. Then pt stated m " Oh, I have weakness in left leg too since this morning ". She also c/o headache, no visual changes. 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 Checked her serial troponin which were negative. She also had stress test done which came back as negative for any ischemia. Her symptoms were concerning for CVA so did stroke work up. Her CT of head and brain MRI did not show any acute infractions. Pt was seen by neurologist, who thins she might have conversion disorder and unlikely TIA. Her Cervical spine MRI showed mild disc protrusion at C5-6 and multi level degenerative changes. Spoke to Ortho surgery Dr. Mcdermott for further evaluation, who recommend to f/u as an out pt with them. We will arrange for f/u appointment with Dr. Carrillo / Dr. Das - Time Spent with Patient Total time spent providing and/or coordinating discharge services: - Constitutional Vitals: Temp Pulse Resp BP Pulse Ox 98.0 F 54 18 141/92 98 01/06/17 07:09 01/06/17 07:09 01/06/17 07:09 01/06/17 07:09 01/06/17 07:09 General appearance: Present: A&O X 3, answers questions appropriately - Head Head exam: Present: atraumatic, normal inspection - Neck Neck exam general surgery: Present: supple - Respiratory Respiratory exam: Present: CTAB. Absent: accessory muscle use, rales, rhonchi, wheezes - Cardiovascular Cardiovascular exam: Present: RRR, +S1, +S2. Absent: diastolic murmur, gallop, rubs, systolic murmur - GI/Abdominal GI/Abdominal exam: Present: normal bowel sounds, soft. Absent: rebound, rigid, tenderness - Extremities Exam Extremities exam: Absent: calf tenderness, pedal edema, tenderness - Neurological Exam Neurological exam: Present: alert, oriented X3 Additional comments: inconsistency examination findings.. No weakness noticed...however she does c/o parasthesia symptoms - Psychiatric Psychiatric exam: Present: anxious
[2017-01-06 11:04] VITALS: BP 116/79
== END 2017-01-06 14:18 | disposition home or self-care (01) ==
LOC: EMEROO 12:38 → 3BNU 12:38 → SUATTDRO 14:37 → 3BNU 15:45
PROVIDERS: ADMIT Family Medicine; ATTEND Family Medicine

== ENCOUNTER 2021-08-13 09:50 | Inpatient (IN) ==
[2021-08-13] MEDS ORDERED: Morphine Sulfate 2 MG/ML SYRINGE IVP ONE (10:11)
[2021-08-13 11:08] LABS: Basophils # 0.1 K/mcL (0.0-0.2); Basophils % 0.9 %; Eosinophils # 0.2 K/mcL (0.0-0.6); Eosinophils % 1.7 %; Hematocrit 43.9 % (35.3-44.9); Hemoglobin 15.2 g/dL (11.5-15.4); Immature Granulocytes % 1.5 % (0-4); Lymphocytes # 1.9 K/mcL (0.6-4.6); Lymphocytes % 16.2 %; Mean Corpuscular HGB Conc 34.6 g/dL (31.6-35.5); Mean Corpuscular Hemoglobin 33.9 pg (28.0-33.3); Mean Corpuscular Volume 97.8 fL (83.0-100.0); Mean Platelet Volume 9.2 fL (9.4-12.4); Monocytes # 0.7 K/mcL (0.0-1.3); Neutrophils # 8.6 K/mcL (1.6-8.9); Platelet Count 196 K/mcL (140-400); Red Blood Count 4.49 M/mcL (3.82-4.97); Red Cell Distribution Width 13.3 % (11.5-14.5); Segmented Neutrophils % 73.7 %; White Blood Count 11.6 K/mcL (4.3-11.1)
[2021-08-13] MEDS ORDERED: *HR* HYDROmorphone (PF) 1 MG/ML SYRINGE IVP ONE (11:17)
[2021-08-13 11:26] LABS: BUN/Creatinine Ratio 16 (6-26); Blood Urea Nitrogen 16 mg/dL (6-20); Calcium 10.2 mg/dL (8.6-10.3); Carbon Dioxide 32 mEq/L (23-29); Chloride 103 mEq/L (98-107); Glucose 129 mg/dL (70-105); Osmolality,Calculated 293 (280-300); Potassium 3.7 mEq/L (3.5-5.1); Sodium 140 mEq/L (136-145); eGFR For African Americans > 60 (> 60); eGFR For Non-African Americans 59 (> 60)
[2021-08-13 11:38] LABS: Prothrombin Time 10.9 Seconds (9.4-12.1)
[2021-08-13 11:40] LABS: Activated Partial Thrombo Time 37.6 Seconds (26.0-36.0)
[2021-08-13] MEDS ORDERED: Acetaminophen 325 MG TABLET PO PRN (13:44)
[2021-08-13] MEDS ORDERED: Ondansetron 4 MG/2 ML VIAL IVP PRN (13:44)
[2021-08-13] MEDS ORDERED: Naloxone 0.4 MG/ML INJ IVP PRN (13:44)
[2021-08-13] MEDS ORDERED: Melatonin 3 MG TABLET PO PRN (13:44)
[2021-08-13] MEDS ORDERED: Sennosides 8.6 MG TABLET PO PRN (13:46)
[2021-08-13] MEDS: *HR* OxyCODONE/APAP 5/325 TABLET PO PRN ×2 (14:32→20:36)
[2021-08-13] MEDS: amLODIPine 5 MG TABLET PO SCH (15:28)
[2021-08-13] MEDS: *HR* HYDROmorphone (PF) 1 MG/ML SYRINGE IVP PRN ×2 (17:05→21:40)
[2021-08-13] MEDS: atenoloL 50 MG TABLET PO SCH (20:36)
[2021-08-13] MEDS: traZODone 50 MG TABLET PO SCH (20:36)
[2021-08-14 01:39] LABS: Hematocrit 42.1 % (35.3-44.9); Hemoglobin 14.2 g/dL (11.5-15.4); Mean Corpuscular HGB Conc 33.7 g/dL (31.6-35.5); Mean Corpuscular Hemoglobin 33.4 pg (28.0-33.3); Mean Corpuscular Volume 99.1 fL (83.0-100.0); Mean Platelet Volume 9.3 fL (9.4-12.4); Platelet Count 227 K/mcL (140-400); Red Blood Count 4.25 M/mcL (3.82-4.97); Red Cell Distribution Width 13.2 % (11.5-14.5); White Blood Count 14.1 K/mcL (4.3-11.1)
[2021-08-14] MEDS: *HR* OxyCODONE/APAP 5/325 TABLET PO PRN ×2 (01:51→09:43)
[2021-08-14 02:00] LABS: BUN/Creatinine Ratio 14 (6-26); Blood Urea Nitrogen 12 mg/dL (6-20); Calcium 9.4 mg/dL (8.6-10.3); Carbon Dioxide 31 mEq/L (23-29); Chloride 100 mEq/L (98-107); Glucose 140 mg/dL (70-105); Magnesium 1.4 mg/dL (1.6-2.6); Osmolality,Calculated 286 (280-300); Potassium 3.8 mEq/L (3.5-5.1); Sodium 137 mEq/L (136-145); eGFR For African Americans > 60 (> 60); eGFR For Non-African Americans > 60 (> 60)
[2021-08-14] MEDS: *HR* HYDROmorphone (PF) 1 MG/ML SYRINGE IVP PRN ×2 (03:45→07:51)
[2021-08-14] MEDS: Aspirin Enteric Coated 81 MG Tablet PO SCH (07:51)
[2021-08-14] MEDS: amLODIPine 5 MG TABLET PO SCH (07:51)
[2021-08-14] MEDS: atenoloL 50 MG TABLET PO SCH (07:51)
[2021-08-14] MEDS ORDERED: *HR* FentaNYL (PF) 100 MCG/2 ML VIAL IVP PRN (09:02)
[2021-08-14] MEDS ORDERED: Albuterol 2.5 MG/3 ML NEBULIZER IH PRN (09:02)
[2021-08-14] MEDS ORDERED: *HR* HYDROmorphone PF 0.5 MG/0.5 ML SYRINGE IVP PRN (09:02)
[2021-08-14] MEDS ORDERED: *HR* HYDROmorphone (PF) 1 MG/ML SYRINGE IVP ONE (11:28)
[2021-08-14] MEDS ORDERED: *HR* Labetalol 20 MG/4 ML SYRINGE IVP ONE (11:31)
[2021-08-14] MEDS ORDERED: Clindamycin 900 MG/50 ML 900 MG/50 ML IV.SOLN IVPB ONE (11:50)
[2021-08-14] MEDS ORDERED: *HR* Midazolam HCl 2 MG/2 ML VIAL ONE (11:55)
[2021-08-14] MEDS ORDERED: *HR* Propofol 200 MG/20 ML VIAL IVP ONE (11:55)
[2021-08-14] MEDS ORDERED: *HR* FentaNYL (PF) 100 MCG/2 ML VIAL ONE (11:55)
[2021-08-14] MEDS ORDERED: Ringers Solution, Lactated 1,000 ML IVC SCH (12:00)
[2021-08-14] MEDS ORDERED: Lidocaine -MPF 2% 2 ML VIAL ONE (12:01)
[2021-08-14] MEDS ORDERED: Tranexamic Acid 1,000 MG/10 ML VIAL ONE (12:42)
[2021-08-14] MEDS ORDERED: EPHEDrine 50 MG/ML VIAL ONE (12:57)
[2021-08-14] MEDS ORDERED: Acetaminophen 325 MG TABLET PO PRN (14:22)
[2021-08-14] MEDS ORDERED: tiZANidine 4 MG TABLET PO PRN (16:48)
[2021-08-14] MEDS: *HR* OxyCODONE Immed Rel 5 MG TABLET PO PRN ×2 (19:18→23:17)
[2021-08-14] MEDS: Metoprolol 100 MG TABLET PO SCH (20:19)
[2021-08-14] MEDS: traZODone 50 MG TABLET PO SCH (20:20)
[2021-08-14] MEDS: Clindamycin 900 MG/50 ML 900 MG/50 ML IV.SOLN IVPB SCH (20:20)
[2021-08-15] MEDS: *HR* HYDROcodone/Acet 5/325 mg TABLET PO PRN (02:26)
[2021-08-15] MEDS: Clindamycin 900 MG/50 ML 900 MG/50 ML IV.SOLN IVPB SCH (03:30)
[2021-08-15 05:10] LABS: Hematocrit 31.4 % (35.3-44.9); Mean Corpuscular HGB Conc 34.1 g/dL (31.6-35.5); Mean Corpuscular Hemoglobin 32.9 pg (28.0-33.3); Mean Corpuscular Volume 96.6 fL (83.0-100.0); Mean Platelet Volume 9.3 fL (9.4-12.4); Platelet Count 166 K/mcL (140-400); Red Blood Count 3.25 M/mcL (3.82-4.97); Red Cell Distribution Width 13.1 % (11.5-14.5); White Blood Count 10.6 K/mcL (4.3-11.1)
[2021-08-15 05:13] LABS: Hemoglobin 10.7 g/dL (11.5-15.4)
[2021-08-15 05:24] LABS: BUN/Creatinine Ratio 13 (6-26); Blood Urea Nitrogen 11 mg/dL (6-20); Calcium 8.4 mg/dL (8.6-10.3); Carbon Dioxide 31 mEq/L (23-29); Chloride 103 mEq/L (98-107); Glucose 134 mg/dL (70-105); Osmolality,Calculated 289 (280-300); Sodium 139 mEq/L (136-145); eGFR For African Americans > 60 (> 60); eGFR For Non-African Americans > 60 (> 60)
[2021-08-15] MEDS: Aspirin Enteric Coated 81 MG Tablet PO SCH (08:55)
[2021-08-15] MEDS: amLODIPine 5 MG TABLET PO SCH (08:55)
[2021-08-15] MEDS: Cholecalciferol (D-3) 1,000 UNIT (25MCG) TABLET PO SCH (08:56)
[2021-08-15] MEDS: Apixaban 2.5 MG TABLET PO SCH ×2 (08:56→20:11)
[2021-08-15] MEDS: Metoprolol 100 MG TABLET PO SCH ×2 (08:56→20:11)
[2021-08-15] MEDS: *HR* OxyCODONE Immed Rel 5 MG TABLET PO PRN ×4 (09:01→23:25)
[2021-08-15] MEDS: traZODone 50 MG TABLET PO SCH (20:10)
[2021-08-16] MEDS: *HR* OxyCODONE Immed Rel 5 MG TABLET PO PRN ×4 (03:48→22:26)
[2021-08-16 03:54] LABS: Hemoglobin 9.9 g/dL (11.5-15.4); Mean Corpuscular HGB Conc 34.1 g/dL (31.6-35.5); Mean Corpuscular Hemoglobin 33.4 pg (28.0-33.3); Mean Platelet Volume 9.8 fL (9.4-12.4); Platelet Count 155 K/mcL (140-400); Red Blood Count 2.96 M/mcL (3.82-4.97); Red Cell Distribution Width 13.1 % (11.5-14.5); White Blood Count 10.4 K/mcL (4.3-11.1)
[2021-08-16 04:15] LABS: BUN/Creatinine Ratio 21 (6-26); Blood Urea Nitrogen 13 mg/dL (6-20); Calcium 8.4 mg/dL (8.6-10.3); Carbon Dioxide 30 mEq/L (23-29); Chloride 103 mEq/L (98-107); Glucose 102 mg/dL (70-105); Osmolality,Calculated 286 (280-300); Potassium 3.6 mEq/L (3.5-5.1); Sodium 138 mEq/L (136-145); eGFR For African Americans > 60 (> 60); eGFR For Non-African Americans > 60 (> 60)
[2021-08-16] MEDS: amLODIPine 5 MG TABLET PO SCH (09:31)
[2021-08-16] MEDS: Cholecalciferol (D-3) 1,000 UNIT (25MCG) TABLET PO SCH (09:31)
[2021-08-16] MEDS: Apixaban 2.5 MG TABLET PO SCH ×2 (09:31→19:57)
[2021-08-16] MEDS: Aspirin Enteric Coated 81 MG Tablet PO SCH (09:31)
[2021-08-16] MEDS: Metoprolol 100 MG TABLET PO SCH ×2 (09:31→19:57)
[2021-08-16] MEDS: traZODone 50 MG TABLET PO SCH (19:57)
[2021-08-17] MEDS: *HR* OxyCODONE Immed Rel 5 MG TABLET PO PRN ×3 (05:44→21:33)
[2021-08-17] MEDS: Apixaban 2.5 MG TABLET PO SCH ×2 (08:07→21:32)
[2021-08-17] MEDS: Metoprolol 100 MG TABLET PO SCH ×2 (08:07→21:33)
[2021-08-17] MEDS: Cholecalciferol (D-3) 1,000 UNIT (25MCG) TABLET PO SCH (08:07)
[2021-08-17] MEDS: Aspirin Enteric Coated 81 MG Tablet PO SCH (08:07)
[2021-08-17] MEDS: amLODIPine 5 MG TABLET PO SCH (08:07)
[2021-08-17] MEDS: traZODone 50 MG TABLET PO SCH (21:33)
[2021-08-18] MEDS: *HR* HYDROcodone/Acet 5/325 mg TABLET PO PRN ×2 (04:01→12:35)
[2021-08-18] MEDS: amLODIPine 5 MG TABLET PO SCH (07:49)
[2021-08-18] MEDS: Aspirin Enteric Coated 81 MG Tablet PO SCH (07:50)
[2021-08-18] MEDS: Apixaban 2.5 MG TABLET PO SCH (07:50)
[2021-08-18] MEDS: Cholecalciferol (D-3) 1,000 UNIT (25MCG) TABLET PO SCH (07:50)
[2021-08-18 11:17] VITALS: BP 167/78; PULSE 60; TEMP 98.2; O2SAT 93
== END 2021-08-18 12:38 | disposition home health service (06) | DRG 308 ==
LOC: 3ANU 09:50 → EMEROOARM 09:50 → 3ANU 13:30 → 4WAOSI 08-14 11:19
PROVIDERS: ADMIT Internal Medicine; ATTEND Internal Medicine